=== PATIENT | female | born 1940 | race Caucasian/White ===

== ENCOUNTER 2019-08-07 11:56 | Emergency (ER) | payer MEDICARE ==
[2019-08-07] MEDS ORDERED: Ondansetron 4 MG Tab.DIS PO ONE (12:37)
--- NOTE | 2019-08-07 12:41 | EDM.PDOC ---
ED HPI GENERAL MEDICAL PROBLEM - General Chief Complaint: Neurological Problem Stated Complaint: [facility] Time Seen by Provider: 08/07/19 12:32 Source of Information: Reports: Patient, RN Notes Reviewed History Limitations: Reports: No Limitations - History of Present Illness INITIAL COMMENTS - FREE TEXT/NARRATIVE: 79-year-old female presents emergency department today following a syncopal event, she was standing in line sudden urge to urinate felt lightheaded next thing she knows she awoke on the floor she did hit the back of her head on the concrete floor. She has had similar episodes like this in the past. Usually occurs with the urge to urinate feels lightheaded after urination symptoms resolved. At this time she complains of nausea no headache no dizziness - Related Data Allergies Allergy/AdvReac Type Severity Reaction Status Date / Time naproxen [From Aleve] Allergy Intermediate Hives Verified 08/07/19 12:28 iodine Allergy Mild Nausea and Verified 08/07/19 12:28 Vomiting peanut Allergy Mild Diarrhea Verified 08/07/19 12:28 Sulfa (Sulfonamide Allergy Mild Other Verified 08/07/19 12:28 Antibiotics) seafood Allergy Mild Diarrhea Uncoded 08/07/19 12:28 Home Meds: Home Meds Acetaminophen [Tylenol Arthritis Pain] 650 mg PO Q8H PRN 08/07/19 [History] Albuterol Sulfate [Proair Respiclick] 90 mcg IH Q4HR PRN 08/07/19 [History] Albuterol/Ipratropium [DuoNeb 3.0-0.5 MG/3 ML] 3 ml .XX Q4HR PRN 08/07/19 [ History] [id number]-Iqdslaibrtfhi [Beano] 1 each PO TIDMEALS 08/07/19 [History] Ascorbate Calcium [Vitamin C] 500 mg PO DAILY 08/07/19 [History] Aspirin [Aspirin EC] 81 mg PO DAILY 08/07/19 [History] Budesonide [Pulmicort] 0.5 mg IH DAILY 08/07/19 [History] Calcium Carbonate/Vitamin D3 [Calcium Carbonate/Vitamin D 600 MG-200 Unit] 1 tab PO DAILY 08/07/19 [History] Carboxymethylcellulose Sodium [Artificial Tears] 1 drop OP Q6HR PRN 08/07/19 [ History] Carboxymethylcellulose Sodium [Refresh Tears] 1 drop OP ASDIRECTED PRN 08/07/19 [History] Cetirizine [ZyrTEC] 10 mg PO DAILY PRN 08/07/19 [History] Cevimeline [Evoxac] 30 mg PO TID 08/07/19 [History] Fluorometholone [Fluorometholone 0.1% Ophth Susp] 1 drop .XX BID 08/07/19 [ History] Fluticasone Propionate [Flonase] 1 spray NS BID 08/07/19 [History] Hydroxychloroquine [Plaquenil] 200 mg PO DAILY 08/07/19 [History] Lactobacillus Rhamnosus R0011 [Probiotic Digestive Care] 1 each PO DAILY [History] Levothyroxine [Synthroid] 50 mcg PO ACBREAKFAST 08/07/19 [History] Losartan [Cozaar] 50 mg PO DAILY 08/07/19 [History] Lutein Extract/Zeaxanthin Ext [Lutein 15 MG Softgel] 1 each PO DAILY 08/07/19 [ History] Melatonin/Pyridoxine HCl (B6) [Melatonin 3 mg Tablet] 1 each PO BEDTIME PRN 10/19 [History] Montelukast [Singulair] 10 mg PO BEDTIME 08/07/19 [History] Multivit-Min/FA/Lycopen/Lutein [Centrum Silver Tablet] 1 each PO DAILY 08/07/19 [History] Mv-Mn/FA/Vit K/Lycop/Lut/Zeaxa [Ocuvite Eye + Multi Tablet] 1 cap PO DAILY 08/06 [History] Omeprazole 20 mg PO BIDAC 08/07/19 [History] Ondansetron [Zofran ODT] 4 mg PO TID 08/07/19 [History] Potassium Gluconate [Potassium] 99 mg PO DAILY 08/07/19 [History] Simethicone 80 mg PO QIDACANDBED PRN 08/07/19 [History] Wheat Dextrin [Benefiber] 1 each PO DAILY 08/07/19 [History] amLODIPine [Norvasc] 10 mg PO DAILY 08/07/19 [History] atenoloL [Atenolol] 25 mg PO DAILY 08/07/19 [History] Past Medical History HEENT History: Reports: Impaired Vision Cardiovascular History: Reports: Hypertension Respiratory History: Reports: Asthma Gastrointestinal History: Reports: GERD Genitourinary History: Reports: UTI, Recurrent 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: Musculoskeletal History: Reports: Other (See Below) Other Musculoskeletal History: shoulder Endocrine/Metabolic History: Reports: Hypothyroidism Immunologic History: Reports: Other (See Below) Other Immunologic History: sjogren - Infectious Disease History Infectious Disease History: Reports: Chicken Pox, Measles - Past Surgical History Head Surgeries/Procedures: Reports: None HEENT Surgical History: Reports: Adenoidectomy, Cataract Surgery, Tonsillectomy Cardiovascular Surgical History: Reports: None Respiratory Surgical History: Reports: None GI Surgical History: Reports: None Female Surgical History: Reports: Salpingo-Oophorectomy Endocrine Surgical History: Reports: None Musculoskeletal Surgical History: Reports: Shoulder Surgery Dermatological Surgical History: Reports: None Social & Family History - Tobacco Use Smoking Status *Q: Never Smoker Second Hand Smoke Exposure: No - Caffeine Use Caffeine Use: Reports: Soda - Alcohol Use Days Per Week of Alcohol Use: 3 Number of Drinks Per Day: 2 Total Drinks Per Week: 6 - Recreational Drug Use Recreational Drug Use: No ED ROS GENERAL - Review of Systems Review Of Systems: See Below Constitutional: Reports: No Symptoms HEENT: Reports: No Symptoms Respiratory: Reports: No Symptoms Cardiovascular: Reports: Syncope GI/Abdominal: Reports: Nausea ED EXAM, NEURO - Physical Exam Exam: See Below Exam Limited By: No Limitations General Appearance: Alert, WD/WN, No Apparent Distress Head Exam: Other (Tenderness with hematoma occipital region) Neck: Normal Inspection, Supple, Non-Tender, Full Range of Motion Respiratory/Chest: No Respiratory Distress, Lungs Clear, Normal Breath Sounds, No Accessory Muscle Use, Chest Non-Tender Cardiovascular: Regular Rate, Rhythm, No Murmur Neurological: Alert, Oriented x 3 Course - Vital Signs Last Recorded V/S: Last Vital Signs Temp 96.7 F L 08/07/19 12:08 Pulse 56 L 08/07/19 12:08 Resp 16 08/07/19 12:08 BP 133/76 08/07/19 12:08 Pulse Ox 96 08/07/19 12:08 - Orders/Labs/Meds Orders: Active Orders 24 hr Category Date Time Status EKG Documentation Completion [RC] ASDIRECTED Care 08/07/19 12:39 Active EKG 12 Lead [EK] Stat Ther 08/07/19 12:39 Ordered Meds: Medications Discontinued Medications Generic Name Dose Route Start Last Admin Trade Name Francesco PRN Reason Stop Dose Admin Ondansetron HCl 4 mg 08/07/19 12:37 08/07/19 12:54 Zofran Odt PO 08/07/19 12:38 4 mg ONETIME ONE Administration Departure - Departure Time of Disposition: 13:38 Disposition: Home, Self-Care 01 Condition: Fair Clinical Impression: Syncope Qualifiers: Syncope type: vasovagal syncope Qualified Code(s): R55 - Syncope and collapse - Discharge Information Instructions: Syncope, [id number] Referrals: PCP,None [Primary Care Provider] - Forms: ED Department Discharge Additional Instructions: Continue with your regular medications, please followup with your primary care provider in 3-5 days if not better, please call return to the emergency department with worsening of symptoms., Sepsis Event Note - Evaluation Sepsis Screening Result: No Definite Risk - Focused Exam Vital Signs: Vital Signs Temp Pulse Resp BP Pulse Ox 08/07/19 12:08 96.7 F L 56 L 16 133/76 96 08/07/19 12:01 96.7 F L 56 L 16 133/76 96 Date Exam was Performed: 08/07/19 Time Exam was Performed: 13:38 - My Orders Last 24 Hours: My Active Orders 08/07/19 12:39 EKG Documentation Completion [RC] ASDIRECTED EKG 12 Lead [EK] Stat - Assessment/Plan Last 24 Hours: My Active Orders 08/07/19 12:39 EKG Documentation Completion [RC] ASDIRECTED EKG 12 Lead [EK] Stat Plan: Assessment Acuity = acute Site and laterality = syncope Etiology = probably vasovagal Manifestations = none Location of injury = Home Lab values = CT scan shows no acute process mild atrophy, EKG demonstrates sinus rhythm Plan She remained asymptomatic while in the emergency department, have her follow-up with her primary care in 3 to 5 days if no improvement This note was dictated using [employer] voice recognition software please call with any questions on syntax or grammar.
--- NOTE | 2019-08-07 13:29 | CT ---
Head wo Cont CLINICAL HISTORY: Head injury COMPARISON: None TECHNIQUE: Transverse scans were obtained from the base of the skull through the vertex without IV contrast on a multislice, multidetector CT scanner. Auto dosage reduction and iterative reconstruction techniques employed. FINDINGS: No focal abnormal parenchymal density is identified. There is no mass effect, hemorrhage, or extraaxial collection. The basal cisterns and sulci over the convexities are prominent. The ventricles are mildly prominent. IMPRESSION: Age-related atrophy. No acute intracranial findings
== END 2019-08-07 13:48 | disposition home or self-care (01) ==
LOC: JP.ED 11:56
DX: R55 Syncope and collapse (principal); I10 Essential (primary) hypertension; J45.909 Unspecified asthma, uncomplicated; K21.9 Gastro-esophageal reflux disease without esophagitis; E03.9 Hypothyroidism, unspecified; Z79.899 Other long term (current) drug therapy; Z91.013 Allergy to seafood; Z91.09 Other allergy status, other than to drugs and biological substances; Z88.8 Allergy status to other drugs, medicaments and biological substances; Z91.010 Allergy to peanuts; Z88.2 Allergy status to sulfonamides; Z79.82 Long term (current) use of aspirin
CPT/HCPCS: 70450; 90471; 93005; 99285; A9270; 93010; 99282